=== PATIENT | female | born 1955 | race Caucasian/White ===

== ENCOUNTER → 2016-10-23 | Outpatient (CLI) | payer OTHER | LOC: FIMAGING 09:11 | PROVIDERS: ATTEND Physician Assistant | DX: Z12.31 Encounter for screening mammogram for malignant neoplasm of breast (principal); M81.0 Age-related osteoporosis without current pathological fracture; Z78.0 Asymptomatic menopausal state; Z80.3 Family history of malignant neoplasm of breast | CPT/HCPCS: G0202 ==

== ENCOUNTER → 2018-01-21 | Outpatient (CLI) | payer OTHER | LOC: FIMAGING 15:52 | PROVIDERS: ATTEND Physician Assistant | DX: Z12.31 Encounter for screening mammogram for malignant neoplasm of breast (principal); Z80.3 Family history of malignant neoplasm of breast ==

== ENCOUNTER 2018-02-03 10:03 | Observation (INO) | payer OTHER ==
[2018-02-03] MEDS ORDERED: LIDOCAINE 2% VISCOUS 15 ML UDCUP PO ONE (10:57)
[2018-02-03] MEDS ORDERED: ASPIRIN 81 MG CHEWABLE TAB PO ONE (10:57)
[2018-02-03] MEDS ORDERED: HYOSCYAMINE SULFATE 0.125 MG TAB PO ONE (10:57)
[2018-02-03] MEDS ORDERED: MAG HYDROX/AL HYDROX/SIMETH 30 ML UDCUP PO ONE (10:57)
[2018-02-03] MEDS ORDERED: NS 1,000 ML IV ONE (10:57)
--- NOTE | 2018-02-03 11:01 | CPEKG ---
Heart Rate: 45 RR Interval: 1333 P-R Interval: 160 QRSD Interval: 88 QT Interval: 496 QTC Interval: 430 P [place]: 50 QRS [place]: -7 T Wave [place]: 42 EKG Severity - OTHERWISE NORMAL ECG - EKG Impression: SINUS BRADYCARDIA Electronically Signed By: Steven El 03-Feb-2018 11:02:59
--- NOTE | 2018-02-03 11:01 | EDPHY ---
H & P Stated Complaint: Mid sternal pain for 1 hour. Time Seen by Provider: 02/03/18 10:50 HPI/ROS: CHIEF COMPLAINT: Chest discomfort HISTORY OF PRESENT ILLNESS: Patient is a 62-year-old female who comes to the emergency department complaining of chest discomfort. She describes it as a pressure. It began about 2 hr ago after she presented at a discussion. She denies shortness of breath, no nausea vomiting or diaphoresis. No lightheadedness. She has no history of cardiac disease. She does have low thyroid and took her normal medications this morning. Her pain she describes is moderate. It is not worsened by movement. REVIEW OF SYSTEMS: Constitutional: denies: chills, fever, recent illness, recent injury EENTM: denies: blurred vision, double vision, nose congestion Respiratory: denies: cough, shortness of breath Cardiac: denies: chest pain, irregular heart rate, lightheadedness, palpitations Gastrointestinal/Abdominal: denies: abdominal pain, diarrhea, nausea, vomiting, blood streaked stools Genitourinary: denies: dysuria, frequency, hematuria, pain Musculoskeletal: denies: joint pain, muscle pain Skin: denies: lesions, rash, jaundice, bruising Neurological: denies: headache, numbness, paresthesia, tingling, dizziness, weakness Hematologic/Lymphatic: denies: blood clots, easy bleeding, easy bruising Immunologic/allergic: denies: HIV/AIDS, transplant EXAM: GENERAL: Well-appearing, well-nourished and in no acute distress. HEAD: Atraumatic, normocephalic. EYES: Pupils equal round and reactive to light, extraocular movements intact, sclera anicteric, conjunctiva are normal. ENT: TMs normal, nares patent, oropharynx clear without exudates. Moist mucous membranes. NECK: Normal range of motion, supple without lymphadenopathy or JVD. LUNGS: Bradycardia, Breath sounds clear to auscultation bilaterally and equal. No wheezes rales or rhonchi. HEART: Regular rate and rhythm without murmurs, rubs or gallops. ABDOMEN: Soft, nontender, normoactive bowel sounds. No guarding, no rebound. No masses appreciated. BACK: No CVA tenderness, no spinal tenderness, step-offs or deformities EXTREMITIES: Normal range of motion, no pitting or edema. No clubbing or cyanosis. NEUROLOGICAL: Cranial nerves II through XII grossly intact. Normal speech, normal gait. 5/5 strength, normal movement in all extremities, normal sensation PSYCH: Normal mood, normal affect. SKIN: Warm, dry, normal turgor, no visible rashes or lesions. Source: Patient Exam Limitations: No limitations - Personal History Current Tetanus Diphtheria and Acellular Pertussis (TDAP): Yes - Medical/Surgical History Hx Asthma: No Hx Chronic Respiratory Disease: No Hx Diabetes: No Hx Cardiac Disease: No Hx Renal Disease: No Hx Cirrhosis: No Hx Alcoholism: No Hx HIV/AIDS: No Hx Splenectomy or Spleen Trauma: No Other PMH: Thyroid. - Family History Significant Family History: No pertinent family hx - Social History Smoking Status: Never smoked Alcohol Use: Sober Drug Use: None Constitutional: Initial Vital Signs Temperature (C) 36.5 C 02/03/18 10:16 Heart Rate 48 L 02/03/18 10:16 Respiratory Rate 16 02/03/18 10:16 Blood Pressure 118/68 02/03/18 10:16 O2 Sat (%) 97 02/03/18 10:16 O2 Delivery Mode Room Air Allergies/Adverse Reactions: Penicillins Allergy (Verified 02/03/18 10:19) Sulfa (Sulfonamide Antibiotics) Allergy (Verified 02/03/18 10:18) Home Medications: Medication Instructions Recorded Albuterol Hfa Anes Only [Proair 2 puffs IH QID PRN 02/03/18 Hfa Icu (*)] Cetirizine [ZyrTEC 10 mg (*)] 10 mg PO DAILY 02/03/18 Levothyroxine [Synthroid 50 mcg 50 mcg PO DAILY06 02/03/18 (*)] valACYclovir [Valtrex (*)] 500 mg PO DAILY 02/03/18 Medical Decision Making - Diagnostics EKG Interpretation: An EKG obtained and was read and documented in trace view. Please see trace view for full reading and report. Sinus bradycardia Imaging: Discussed imaging studies w/ call center support consultant Radiologist ED Course/Re-evaluation: We discussed the patient's elevated troponin with Samra. Will admit to the hospital service. 12:[address] Benjamin who will evaluate for catheterization. Differential Diagnosis: Partial list of the Differential diagnosis considered include but were not limited to; myocardial infarction, anxiety, GERD and although unlikely based on the history and physical exam, I also considered aneurysm, dissection, PE, pneumonia. Critical Care Time: Critical care time spent by me, Dr. El exclusive with this patient was 45 minutes, exclusive of the PA time exclusive of procedures. The organ system that was at risk was cardiovascular and I gave diagnostics, medications and admission to prevent worsening of the patient's condition - Data Points Laboratory Results: Laboratory Results 02/03/18 10:50 02/03/18 10:50 Medications Given: Carvedilol (Coreg) 3.125 mg PO BIDMEAL [facility] Stop: 08/02/18 17:59 Last Admin: 02/04/18 08:28 Dose: 3.125 mg Cetirizine HCl (Zyrtec) 10 mg PO DAILY [facility] Stop: 08/03/18 08:59 Last Admin: 02/04/18 08:20 Dose: 10 mg Levothyroxine Sodium (Synthroid) 50 mcg PO DAILY06 [facility] Stop: 08/03/18 05:59 Last Admin: 02/04/18 05:17 Dose: 50 mcg Valacyclovir HCl (Valtrex) 500 mg PO DAILY [facility] Stop: 03/06/18 08:59 Last Admin: 02/04/18 08:20 Dose: 500 mg Discontinued Medications Al Hydroxide/Mg Hydroxide (Maalox Susp) 30 ml PO ONCE ONE Stop: 02/03/18 10:58 Last Admin: 02/03/18 11:27 Dose: 30 ml Aspirin (Aspirin) 324 mg PO EDNOW ONE Stop: 02/03/18 10:58 Last Admin: 02/03/18 11:29 Dose: 324 mg Hyoscyamine Sulfate (Levsin, Hyomax-Sl) 0.25 mg PO ONCE ONE Stop: 02/03/18 10:58 Last Admin: 02/03/18 11:29 Dose: 0.25 mg Sodium Chloride (Ns) 1,000 mls @ 0 mls/hr IV EDNOW ONE; Wide Open PRN Reason: Protocol Stop: 02/03/18 10:58 Last Admin: 02/03/18 13:22 Dose: 1,000 mls Lidocaine (Lidocaine 2% Viscous) 15 ml PO ONCE ONE Stop: 02/03/18 10:58 Last Admin: 02/03/18 11:27 Dose: 15 ml Point of Care Test Results: Chemistry 02/03/18 12:04 POC Troponin I 1.75 ng/mL H ng/mL (0.00-0.08) Departure - Departure Disposition: [facility] Inpatient Acute Clinical Impression: Chest pain Qualifiers: Chest pain type: unspecified Qualified Code(s): R07.9 - Chest pain, unspecified Condition: Fair
[2018-02-03 11:08] LABS: PLATELET COUNT 230 10^3/uL (150-400)
[2018-02-03 12:20] LABS: INR 0.97 (0.83-1.16); PROTIME(PATIENT) 13.1 SEC (12.0-15.0)
[2018-02-03] MEDS ORDERED: ACETAMINOPHEN 325 MG TAB PO PRN (12:29)
[2018-02-03] MEDS ORDERED: ONDANSETRON DISINTEGRATING 4 MG TAB PO PRN (12:29)
[2018-02-03] MEDS ORDERED: ONDANSETRON 4 MG/2 ML VIAL IVP PRN (12:29)
[2018-02-03] MEDS ORDERED: NITROGLYCERIN 0.4 MG BTL SL PRN (12:31)
[2018-02-03] MEDS ORDERED: fentaNYL 100 MCG/2 ML INJ ONE ×2 (13:10→13:57)
[2018-02-03] MEDS ORDERED: LIDOCAINE 1% 300 MG/30 ML SDV ONE (13:10)
[2018-02-03] MEDS ORDERED: VERAPAMIL 5 MG/2 ML VIAL ONE (13:11)
[2018-02-03] MEDS ORDERED: HEPARIN 10,000 UNIT/10 ML MDV (1,000 UNIT/ML) ONE (13:11)
[2018-02-03] MEDS ORDERED: MIDAZOLAM 2 MG/2 ML VIAL ONE ×3 (13:11→14:09)
[2018-02-03] MEDS ORDERED: IOPAMIDOL (ISOVUE-370) 150 ML BTL IV ONE (13:11)
[2018-02-03] MEDS ORDERED: EPINEPHrine 1 MG/10 ML SYR IVP ONE (13:12)
[2018-02-03] MEDS ORDERED: ATROPINE SULFATE 1 MG/10 ML SYR ONE (13:12)
[2018-02-03] MEDS ORDERED: NITROGLYCERIN 1,500 MCG/15 ML VIAL MISC ONE (13:13)
[2018-02-03] MEDS ORDERED: BIVALIRUDIN 250 MG/5 ML VIAL IV ONE (13:32)
--- NOTE | 2018-02-03 13:44 | PDCARCONS ---
Cardiology Consult Reason for Consult: Active chest pain Chief Complaint: Squeezing chest pain Requesting Physician: ED Physician, Dr. El History of Present Illness: Genia is a 62-year-old female who presented to the Emergency Department with acute chest discomfort. 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 She felt like the chest discomfort may be heartburn, though she states she has never experienced heartburn. Genia has no associated symptoms of shortness of breath, lightheadedness, near syncope, syncope, or palpitations. Her troponin was found to be elevated. I interpreted her EKG in the ED which is negative for ischemia. Genia continues to have active chest pain at rest, CCS Class IV angina. Genia has no cardiac history. Of note, she was able to go for a long and difficult bike ride yesterday without clinical symptoms of angina. History Information - Allergies/Home Medication List Allergies/Adverse Reactions: Penicillins Allergy (Verified 02/03/18 10:19) Sulfa (Sulfonamide Antibiotics) Allergy (Verified 02/03/18 10:18) Home Medications: Synthroid 02/03/18 [Last Taken Unknown] I have personally reviewed and updated: family history, medical history, social history, surgical history Past Medical History: Hypothyroid - Past Medical History Additional medical history: thoracic scoliosis - Surgical History Reports: no pertinent surgical hx - Family History Additional family history: Both of her siblings have Parkinson's disease. She does not have a family history of sudden cardiac . - Social History Smoking Status: Never smoked Tobacco Use: Secondhand Alcohol Use: Sober Drug Use: None Additional social history: . 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 Bikes and dances regularly without clinical symptoms of chest dioscomfort. Cardiac History - Cardiac History Cardiac Risk Factors: none Timing/Duration: Hours Severity: moderate Location: substernal Activities at Onset: none DONTAE Risk Evaluation age greater or equal to 65: no greater or equal to 3 CAD risk factors: no known CAD(stenosis greater or eqaul to 50%): no ASA use in past 7 days: no severe angina(greater or equal to 2 episodes in 24hrs): no EKG ST changes greater or equal to 0.5mm: no positive cardiac marker: yes Total Score: 1 DONTAE Score: 4.7% risk [facility] BP Pulse Ox 36.7 C 47 L 18 137/75 H 98 02/03/18 13:28 02/03/18 13:28 02/03/18 13:28 02/03/18 13:28 02/03/18 13:28 Constitutional: appears nourished, other (Appears in discomfort) Eyes: PERRL, EOMI Ears, Nose, Mouth, Throat: moist mucous membranes, hearing normal Cardiovascular: regular rate and rhythym, no murmur, rub, or gallop Peripheral Pulses: 2+: carotid (R), carotid (L), femoral (R), femoral (L), dorsalis-pedis (R), dorsalis-pedis (L) Respiratory: no respiratory distress, no rales or rhonchi, clear to auscultation Gastrointestinal: normoactive bowel sounds, soft, non-tender abdomen Genitourinary: no bladder fullness Skin: warm, normal color Musculoskeletal: full muscle strength, no muscle tenderness Neurologic: AAOx3 Psychiatric: interacting appropriately, anxious Lymph, Heme, Immunologic: no cervical LAD Lab and Imaging 02/03/18 10:50 02/03/18 10:50 WBC 5.26 10^3/uL (3.80-9.50) 02/03/18 10:50 RBC 4.51 10^6/uL (4.18-5.33) 02/03/18 10:50 Hgb 13.9 g/dL (12.6-16.3) 02/03/18 10:50 Hct 41.7 % (38.0-47.0) 02/03/18 10:50 MCV 92.5 fL (81.5-99.8) 02/03/18 10:50 MCH 30.8 pg (27.9-34.1) 02/03/18 10:50 MCHC 33.3 g/dL (32.4-36.7) 02/03/18 10:50 RDW 12.7 % (11.5-15.2) 02/03/18 10:50 Plt Count 230 10^3/uL (150-400) 02/03/18 10:50 MPV 11.3 fL (8.7-11.7) 02/03/18 10:50 Neut % (Auto) 67.1 % (39.3-74.2) 02/03/18 10:50 Lymph % (Auto) 26.6 % (15.0-45.0) 02/03/18 10:50 [place] % (Auto) 4.9 % (4.5-13.0) 02/03/18 10:50 Eos % (Auto) 0.8 % (0.6-7.6) 02/03/18 10:50 Baso % (Auto) 0.4 % (0.3-1.7) 02/03/18 10:50 Nucleat RBC Rel Count 0.0 % (0.0-0.2) 02/03/18 10:50 Absolute Neuts (auto) 3.53 10^3/uL (1.70-6.50) 02/03/18 10:50 Absolute Lymphs (auto) 1.40 10^3/uL (1.00-3.00) 02/03/18 10:50 Absolute Monos (auto) 0.26 10^3/uL (0.30-0.80) L 02/03/18 10:50 Absolute Eos (auto) 0.04 10^3/uL (0.03-0.40) 02/03/18 10:50 Absolute Basos (auto) 0.02 10^3/uL (0.02-0.10) 02/03/18 10:50 Absolute Nucleated RBC 0.00 10^3/uL (0-0.01) 02/03/18 10:50 Immature Gran % 0.2 % (0.0-1.1) 02/03/18 10:50 Immature Gran # 0.01 10^3/uL (0.00-0.10) 02/03/18 10:50 PT 13.1 SEC (12.0-15.0) 02/03/18 11:50 INR 0.97 (0.83-1.16) 02/03/18 11:50 APTT 29.4 SEC (23.0-38.0) 02/03/18 11:50 D-Dimer 0.43 ug/mLFEU (0.00-0.50) 02/03/18 11:50 Sodium 142 mEq/L (135-145) 02/03/18 10:50 Potassium 4.6 mEq/L (3.3-5.0) 02/03/18 10:50 Chloride 107 mEq/L (97-110) 02/03/18 10:50 Carbon Dioxide 25 mEq/l (22-31) 02/03/18 10:50 Anion Gap 10 mEq/L (8-16) 02/03/18 10:50 BUN 19 mg/dL (7-23) 02/03/18 10:50 Creatinine 0.7 mg/dL (0.6-1.0) 02/03/18 10:50 Estimated GFR > 60 02/03/18 10:50 Glucose 99 mg/dL (70-100) 02/03/18 10:50 Calcium 9.8 mg/dL (8.5-10.4) 02/03/18 10:50 Total Bilirubin 0.9 mg/dL (0.1-1.4) 02/03/18 10:50 Conjugated Bilirubin 0.2 mg/dL (0.0-0.5) 02/03/18 10:50 Unconjugated Bilirubin 0.7 mg/dL (0.0-1.1) 02/03/18 10:50 AST 31 IU/L (14-46) 02/03/18 10:50 ALT 31 IU/L (9-52) 02/03/18 10:50 Alkaline Phosphatase 85 IU/L (38-126) 02/03/18 10:50 POC Troponin I 1.75 ng/mL (0.00-0.08) H 02/03/18 12:04 Total Protein 6.8 g/dL (6.3-8.2) 02/03/18 10:50 Albumin 4.1 g/dL (3.5-5.0) 02/03/18 10:50 Lipase 168 IU/L (23-300) 02/03/18 10:50 TSH 3.270 uIU/mL (0.465-4.680) 02/03/18 10:50 Free T4 1.42 ng/dL (0.59-2.19) 02/03/18 10:50 Visualized and Interpreted Chest x-ray results: Yes Chest X-ray Interpretation: normal EKG Interpretation: Positive for: normal sinsus rhythm EKG additional interpertation: There are no ST/T abnormalities. No findings suggestive of ischemia. A/P Assessment: Genia is a healthy 62-year-old female. She has no history of cardiac disease. She presented to the ED with acute chest discomfort that started after a presentation a few hours ago. Her chest pain has remained constant since onset. The differential includes acute coronary syndrome, SCAD, tako tsubo syndrome or Prinzmetal's variant angina (coronary vasospasm). In the ED her troponin was found to be slightly elevated. Her EKG showed no signs of ischemia. Given Genia's active chest discomfort, CCS Class IV angina equivalent, as well as her elevated Troponin, I recommend she have an angiogram performed. I have explained the risks, expected benefits and potential complications of this course of action with the patient and she wishes to proceed as planned. Some potential benefits include angina relief, definitive assessment of coronary anatomy and LV function. Complications have been described as , permanent and disabling stroke, heart attack, abnormal heart rhythm, bleeding and damage to blood vessels resulting in tissue or limb loss. Plan: We plan to proceed with an angiogram for a definitive assessment of the patient' s coronary anatomy and LV function.
--- NOTE | 2018-02-03 13:55 | PDDXCAT ---
Diagnostic Cath Note - . Date: 02/03/18 Laboratory Sample Carrier: Sourav Indication: other (CCC Class IV angina, not on medical treatment.) - Procedure Access: left wrist Procedure: left heart catheterization, coronary angiography, left ventriculogram - Materials Left Heart Cath size: 5F Left Heart Cath materials: standard multipack (JL4, JR4, pigtail) - Findings-Left Heart Catheterization LM: The LM is 7mm in size. Bifurcates into an LAD and circumflex system. LAD: The LAD is 4mm in size. Minimal luminal irregularity near the ostial and mid segment of the vessel. Maximal luminal stenosis is 10%. No flow limiting obstruction is identified. DONTAE III flow throughout. LCX: The LCX is 4mm in size. It gives rise to two important OM branches. Both of which are free of flow limiting obstruction. EDP: The LVEDP was 17 mmHg. LVEF: The EF is decreased at 30%. Wall motion: The EF is decreased at 30% with a hypercontractile base. 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 Complications: NONE. Estimated blood loss: <50ml Closure method: TR Band Assessment: The patient has no evidence of flow limiting obstruction, dissection , or thrombus in her coronaries. 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 Plan: Plan for admission to watch for cardiac dysrhythmia. We will start her on low- dose beta andreas at tolerated. Intervention: NONE. Patient Problems: Problems Problem Status Onset Chest pain Acute
[2018-02-03] MEDS ORDERED: ATROPINE SULFATE 1 MG/10 ML SYR IVP PRN (14:45)
[2018-02-03] MEDS: CARVEDILOL 3.125 MG TAB PO SCH (17:23)
[2018-02-03] MEDS ORDERED: ALBUTEROL 60 PUFFS/8 GM MDI IH PRN (21:42)
[2018-02-04] MEDS: LEVOTHYROXINE 50 MCG TAB PO SCH (05:17)
[2018-02-04] MEDS: valACYclovir 500 MG TAB PO SCH (08:20)
[2018-02-04] MEDS: CETIRIZINE 10 MG TAB PO SCH (08:20)
[2018-02-04] MEDS: CARVEDILOL 3.125 MG TAB PO SCH ×2 (08:28→17:18)
--- NOTE | 2018-02-04 10:15 | PDCARPN ---
Cardiology Progress Note Chief Complaint: Takotsubo syndrome Assessment/Plan: Assessment: Genia presented to the ED with moderate to severe chest discomfort. She underwent a heart catheterization and was found to have no evidence of flow limiting obstruction, dissection, or thrombus in her coronaries. 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 Genia was monitored overnight to make sure she was not having dysrhythmia. Plan: We are waiting for a repeat Troponin level and 12 lead EKG. I reviewed her chemistry panel, which is normal. I recommend the patient relax and avoid stress, alcohol, coffee, or other stimulants. I do not want the patient to do any strenuous exercise for the next 3-4 weeks. 02/04/18 10:11 02/04/18 16:03 Her Troponin is trending down, today it is 1.43. Her 12 lead EKG shows diffuse T wave inversions consistent with ischemia. We will continue to monitor her rhythm overnight. Plan for a limited echocardiogram in the morning. Likely discharge home tomorrow. 02/04/18 16:05 Subjective: Genia is resting comfortably in bed. She is no longer experiencing chest discomfort. The patient is feeling much better. Reviewed/Discussed With: multidisciplinary team Time Spent with Patient: greater than 25 minutes Time Spent with Patient: Greater than 25 minutes spent on this patients care, greater than 50% of time spent counseling, educating, and coordinating care regarding the above mentioned plan. Objective: Vital Signs (8 Hrs) Temp Pulse Resp BP Pulse Ox 02/04/18 07:25 36.7 C 50 L 14 102/84 H 97 02/04/18 04:00 36.9 C 45 L 16 95/56 L 97 Intake/Output (24 Hrs) 02/03/18 02/04/18 02/05/18 05:59 05:59 05:59 Intake Total 1800 Balance 1800 Intake: Oral (ml) 800 IV Infused (ml) 1000 Other: Weight 53.524 kg 54.4 kg Number of Voids Toilet 2 Result Diagrams: 02/03/18 10:50 02/04/18 03:37 Cardiac Labs: Her Troponin is trending down, today it is 1.43. EKG: EKG shows diffuse T wave inversions consistent with ischemia. Telemetry: I reviewed the raw data from the rhythm strips. There are new T wave inversions which are a sign of recent injury to the heart muscle. - Physical Exam Constitutional: WDWN, healthy appearing Eyes: PERRL, EOMI Ears, Nose, Mouth, Throat: moist mucous membranes Peripheral Pulses: 2+: carotid (R), carotid (L), femoral (R), femoral (L), dorsalis-pedis (R), dorsalis-pedis (L) Respiratory: clear to auscultate bilat, no crackles, no wheezes Gastrointestinal: normoactive bowel sounds Skin: warm Musculoskeletal: no muscular tenderness, other (Left wrist appears to be healing well with no signs of infection. ) Psychiatric: cooperative, interactive - . Pending Discharge Within 24 Hours: Yes ICD10 Worksheet Patient Problems: Problems Problem Status Onset Chest pain Acute Takotsubo cardiomyopathy Acute - ICD10 Problem Qualifiers (1) Takotsubo cardiomyopathy
--- NOTE | 2018-02-04 10:32 | CPEKG ---
Heart Rate: 54 RR Interval: 1111 P-R Interval: 152 QRSD Interval: 86 QT Interval: 524 QTC Interval: 497 P [place]: 23 QRS [place]: -12 T Wave [place]: 201 EKG Severity - ABNORMAL ECG - EKG Impression: SINUS RHYTHM EKG Impression: ABNORMAL T, PROBABLE ISCHEMIA, WIDESPREAD EKG Impression: BORDERLINE PROLONGED QT INTERVAL EKG Impression: T WAVE CHANGES ARE NEW IN COMPARISON TO YESTERDAY'S ECG Electronically Signed By: Ti Stanton 04-Feb-2018 16:32:51
--- NOTE | 2018-02-04 13:41 | ASMTCASEMG ---
Living Arrangements What is your living Answers: With Spouse arrangement? Who do you live with? Type Of Residence What kind of residence do Answers: House you live in? Discharge Plan Comments Coordination Status Comments Notes: CM spoke to MICK Renee regarding d/c POC. Pt is a 62 y/o female admitted for unstable angina. Pt will most likely d/c without any needs when medically stable. No therapies ordered at this time. CM available for changes. Plan: Independent Date Signed: 02/04/2018 01:40 PM Electronically Signed By:SANTI Orona
[2018-02-05] MEDS: LEVOTHYROXINE 50 MCG TAB PO SCH (06:28)
[2018-02-05] MEDS: valACYclovir 500 MG TAB PO SCH ×2 (09:59→10:02)
[2018-02-05] MEDS: CARVEDILOL 3.125 MG TAB PO SCH (09:59)
[2018-02-05] MEDS: CETIRIZINE 10 MG TAB PO SCH (09:59)
--- NOTE | 2018-02-05 10:34 | CPEKG ---
Heart Rate: 52 RR Interval: 1154 P-R Interval: 172 QRSD Interval: 90 QT Interval: 532 QTC Interval: 495 P [place]: 52 QRS [place]: -20 T Wave [place]: 229 EKG Severity - ABNORMAL ECG - EKG Impression: SINUS RHYTHM EKG Impression: BORDERLINE LEFT AXIS DEVIATION EKG Impression: ABNORMAL T, PROBABLE ISCHEMIA, WIDESPREAD EKG Impression: BORDERLINE PROLONGED QT INTERVAL Electronically Signed By: Ti Stanton 05-Feb-2018 17:13:39
--- NOTE | 2018-02-05 11:54 | ECHO ---
[email or web address] [address] [address] Main: [phone] Fax: Transthoracic Echocardiogram Name: FRIEDA BROWN MR#: [id number] Study Date: 02/05/2018 Study Time: 07:46 AM Date of : 1955 Age: 62 year(s) Height: 162.6 cm (64 in.) Weight: 53.98 kg (119 lb.) BSA: 1.57 m2 Gender: Female Examination: Limited Echo Indication: Takotsubo cardiomyopathy Image Quality: Contrast: Requested by: Chito Benjamin BP: 120 mmHg/70 mmHg Heart Rate: Rhythm: Indication: Takotsubo cardiomyopathy Procedure Staff Dynamicist: Dulce Maria Early [facility] Reading Physician: Chito Benjamin MD Requesting Provider: Conclusions: The ejection fraction is estimated to be 45-50% %. LV mid/apical segments remain akinetic. LV base segments have normal motion.. Mild mitral valve regurgitation is present. The aortic valve is tri-leaflet. Mild tricuspid regurgitation is present. No pericardial effusion. There has been an improvement in LV function compared to LV gram on admission. There is no evidence of apical thrombus. Consider repeat study in 6 weeks to evaluate LV function. Measurements: Chambers Valvular Assessment AV/MV Valvular Assessment TV/PV Normal Normal Normal Name Value Range Name Value Range Name Value Range LVEF (BP): 51 % (>=55 %) EF Range: 45-50% % Continued Measurements: Findings: Left Ventricle: The ejection fraction is estimated to be 45-50% %. LV mid/apical segments remain akinetic. LV base segments have normal motion.. Mitral Valve: Mild mitral valve regurgitation is present. Aortic Valve: The aortic valve is tri-leaflet. Tricuspid Valve: Mild tricuspid regurgitation is present. Patient: FRIEDA BROWN Study Date: 02/05/2018 Page 1 of 2 07:46 AM Pericardium: No pericardial effusion. (No Signature Object) Patient: FRIEDA BRONW Study Date: 02/05/2018 Page 2 of 2 07:46 AM [id number]
[2018-02-05 13:16] VITALS: BP 118/64
--- NOTE | 2018-02-05 13:44 | PDCARPN ---
Cardiology Progress Note Chief Complaint: Takotsubo cardiomyopathy Assessment/Plan: Assessment: Genia presented to the ED with moderate to severe chest discomfort. She underwent a heart catheterization and was found to have no evidence of flow limiting obstruction, dissection, or thrombus in her coronaries. 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 Genia was monitored overnight to make sure she was not having dysrhythmia. Plan: We are waiting for a repeat Troponin level and 12 lead EKG. I reviewed her chemistry panel, which is normal. I recommend the patient relax and avoid stress, alcohol, coffee, or other stimulants. I do not want the patient to do any strenuous exercise for the next 3-4 weeks. 02/04/18 10:11 02/04/18 16:03 Her Troponin is trending down, today it is 1.43. Her 12 lead EKG shows diffuse T wave inversions consistent with ischemia. We will continue to monitor her rhythm overnight. Plan for a limited echocardiogram in the morning. Likely discharge home tomorrow. 02/04/18 16:05 02/05/18 13:35 I re-evaluated the patient. She has no cardiac complaints at this time. I interpreted her repeat echocardiogram. Her heart power has recovered somewhat compared to admission but not nearly to a normal value. Her EF today has improved to 45%. Her EKG continues to show T wave abnormalities and prolonged QT. I stopped her Zyrtec. I suspect the QT prolongation is most likely related to the Tako-tsubo and not to a kierra channelopathy I have instructed the patient not to exercise or do anything that will increase blood pressure or heart rate for the for the next 3-4 weeks. The patient will need a follow up echocardiogram in 3-4 weeks to re-evaluate her EF. She will be able to resume cardiovascular exercise once her EKG and echocardiogram have normalized. In regards to travel, I do not recommend the patient travel to [place] given her recent event and the fact that the plane ride will be over 6 hours. Ultimately that decision will be up to her and her , who was on the speaker phone with me when that recommendation was made. Her EF has improved. She has not had any premature beats, so the risk of sudden incapacitation due to rhythm disturbance is quite low. If the patient rests, reduces stress, and avoids strenuous exercise for the next 6 weeks, then I expect the patient's heart to fully recover. Genia has no cardiac complains. She knows to present to the Emergency Department immediately if she develops chest pain/pressure/tightness, shortness of breath, lightheadedness, near syncope, syncope or other cardiac complaints. The patient is safe to be discharged home at this time. i do not recommend she take allergy medication as these can increase QT interval. She will be on ASA and Coreg until her follow up visit in 3-4 weeks. 02/05/18 15:05 Subjective: The patient is doing well and resting comfortably in bed. She has no cardiac complaints at this time. Reviewed/Discussed With: family, hospitalist, multidisciplinary team Time Spent with Patient: greater than 35 minutes Time Spent with Patient: Greater than 35 minutes spent on this patients care, greater than 50% of time spent counseling, educating, and coordinating care regarding the above mentioned plan. Objective: Vital Signs (8 Hrs) Temp Pulse Resp BP Pulse Ox 02/05/18 12:00 62 16 118/64 94 02/05/18 07:41 36.6 C 45 L 18 120/70 99 Intake/Output (24 Hrs) 02/04/18 02/05/18 02/06/18 05:59 05:59 05:59 Intake Total 1800 800 Balance 1800 800 Intake: Oral (ml) 800 800 IV Infused (ml) 1000 Other: Weight 53.524 kg 53.887 kg Number of Voids Toilet 2 1 Number of Stools Toilet 1 Result Diagrams: 02/03/18 10:50 02/04/18 03:37 Cardiac Labs: Cardiac Lab Results (72 Hrs) 02/04/18 03:37 Troponin I 1.430 H EKG: Her EKG continue to show diffuse T wave inversions and prolonged QT interval. Telemetry: I looked at the raw data from the patient's rhythm strips. There were no premature beats, tachy, or abhishek dysrhythmia present on the monitoring system. Echocardiogram: I interpreted the patient's limited echocardiogram. Her EF has improved to 45%. Please see full report for details. - Physical Exam Constitutional: WDWN, healthy appearing Eyes: PERRL, EOMI Ears, Nose, Mouth, Throat: moist mucous membranes Cardiovascular: regular rate and rhythm Peripheral Pulses: 2+: carotid (R), carotid (L), femoral (R), femoral (L), dorsalis-pedis (R), dorsalis-pedis (L) Respiratory: clear to auscultate bilat, no crackles, no wheezes Gastrointestinal: normoactive bowel sounds Skin: no rashes, warm Musculoskeletal: no muscular tenderness Neurologic: AAOx3 Psychiatric: cooperative, interactive - . Pending Discharge Within 24 Hours: Yes ICD10 Worksheet Patient Problems: Problems Problem Status Onset Chest pain Acute Takotsubo cardiomyopathy Acute - ICD10 Problem Qualifiers (1) Takotsubo cardiomyopathy
[2018-02-05] MEDS ORDERED: ASPIRIN 81 MG CHEWABLE TAB PO ONE (14:58)
== END 2018-02-05 16:15 | disposition home or self-care (01) ==
LOC: F2W 16:45
PROVIDERS: ADMIT Internal Medicine; ATTEND Internal Medicine
PROC: 4A023N7 Measurement of Cardiac Sampling and Pressure, Left Heart, Percutaneous Approach (ICD-10-PCS; principal; 2018-02-03)
PROC: B2111ZZ Fluoroscopy of Multiple Coronary Arteries using Low Osmolar Contrast (ICD-10-PCS; principal; 2018-02-03)
PROC: B2151ZZ Fluoroscopy of Left Heart using Low Osmolar Contrast (ICD-10-PCS; principal; 2018-02-03)
DX: I20.9 Angina pectoris, unspecified (principal); I51.81 Takotsubo syndrome; Z88.0 Allergy status to penicillin; Z88.2 Allergy status to sulfonamides
CPT/HCPCS: 71046; 93005; 93308; 93458; 99291; G0378; 84484-PO; J0461; J0583; J1200; J1644; J2250; J3010; Q9967